=== PATIENT | female | born 1950 | race Caucasian/White ===

== ENCOUNTER → 2017-08-25 | Outpatient (CLI) | payer MEDICARE, OTHER ==
[2017-08-25 09:46] LABS: ALT 32 U/L (9-52); AST 20 U/L (14-36); Cholesterol 132 mg/dL (<200); HDL Cholesterol 31 mg/dL (40-60); LDL Cholesterol,Calculated 75 mg/dL (0-99); Triglycerides 129 mg/dL (<150)
== END | disposition home or self-care (01) ==
LOC: LABWHC1 08:33
PROVIDERS: ATTEND Family Medicine
DX: E78.00 Pure hypercholesterolemia, unspecified (principal)
CPT/HCPCS: 36415; 80061; 84450; 84460

== ENCOUNTER → 2018-04-22 | Outpatient (CLI) | payer MEDICARE ==
--- NOTE | 2018-04-23 03:54 | US ---
EXAMINATION TYPE: US pelvic complete DATE OF EXAM: 04/22/2018 COMPARISON: NONE CLINICAL HISTORY: 67-year-old female R19.09 Other intra-abdominal and pelvic swelling. TECHNIQUE: Transabdominal (TA). Date of LMP: Patient had LMP at 49 FINDINGS: EXAM MEASUREMENTS: Uterus: 8.5 x 3.6 x 4.1 cm Endometrial Stripe: 0.3 cm Right Ovary: 2.1 x 1.7 x 1.4 cm Left Ovary: 2.0 x 1.2 x 1.5 cm 1. Uterus: Anteverted wnl 2. Endometrium: wnl 3. Right Ovary: wnl 4. Left Ovary: wnl 5. Bilateral Adnexa: wnl 6. Posterior cul-de-sac: wnl IMPRESSION: No specific abnormality of the pelvis by transabdominal scanning.
== END | disposition home or self-care (01) ==
LOC: RADUSWWP 14:40
PROVIDERS: ATTEND Family Medicine
DX: R19.09 Other intra-abdominal and pelvic swelling, mass and lump (principal)
CPT/HCPCS: 76856

== ENCOUNTER → 2018-06-05 | Outpatient (CLI) | payer MEDICARE, OTHER ==
--- NOTE | 2018-06-05 14:12 | BD ---
EXAMINATION TYPE: Axial Bone Density DATE OF EXAM: 06/05/2018 COMPARISON: NONE CLINICAL HISTORY: Height: 5 FT 5 IN Weight: 160 FRAX RISK QUESTIONS: History of Fracture in Adulthood: YES Secondary Osteoporosis: RISK FA HISTORY OF: Family History of Osteoporosis: YES Postmenopausal woman: AGE 49 MEDICATIONS: Thyroid Medications: YES Which medication: UNSURE How Long: UNSURE Additional Medications: THYROIDS MEDS, DEPRESSION MEDS, H2O PILL, ACID REFLUX MEDS, Additional History: TOOK FOSAMAX AT ONE TIME HAS NOT TAKEN IN APPROX 8 YEARS EXAM MEASUREMENTS: Bone mineral densitometry was performed using the [employer] System. Bone mineral density as measured about the Lumbar spine is: ----- L1-L4(G/cm2): 0.971 T Score Values are as follows: ----- L2: -1.9 ----- L3: -1.1 ----- L4: -1.5 ----- L1-L4: -1.7 PREV NOT DONE HERE Bone mineral density about the R hip (g/cm2): 0.860 Bone mineral density about the L hip (g/cm2): 0.884 T Score values are as follows: -----R Neck: -1.3 -----L Neck: -1.1 -----R Total: -0.6 -----L Total: -0.8 PREV NOT DONE HERE IMPRESSION: Osteopenia of the lumbar spine. NOTE: T-SCORE=SD OF THE YOUNG ADULT MEAN.
== END | disposition home or self-care (01) ==
LOC: RADBDWWP 09:03
PROVIDERS: ATTEND Family Medicine
DX: M85.88 Other specified disorders of bone density and structure, other site (principal)
CPT/HCPCS: 77080

== ENCOUNTER → 2018-08-07 | Outpatient (CLI) | payer MEDICARE ==
--- NOTE | 2018-08-13 08:06 | MM ---
Reason for exam: screening (asymptomatic). Last mammogram was performed 19 years and 4 months ago. History: Patient is postmenopausal. Took hormonal contraceptives for 2 years. Physical Findings: A clinical breast exam by your physician is recommended on an annual basis and results should be correlated with mammographic findings. MG 3D Screening Mammo W/Cad Bilateral CC and MLO view(s) were taken. Prior study comparison: August 27, 2017, mammogram. November 26, 2014, mammogram. There are scattered fibroglandular densities. There is chronic nodularity in the right breast. No significant changes when compared with prior studies. ASSESSMENT: Negative, BI-RAD 1 RECOMMENDATION: Routine screening mammogram of both breasts in 1 year.
== END | disposition home or self-care (01) ==
LOC: RADMAMWWP 09:09
PROVIDERS: ATTEND Family Medicine
DX: Z12.31 Encounter for screening mammogram for malignant neoplasm of breast (principal)
CPT/HCPCS: 77063; 77067

== ENCOUNTER 2018-09-09 02:54 | Emergency (ER) | payer MEDICARE ==
--- NOTE | 2018-09-09 03:02 | ED ---
Chest Pain HPI - General Stated Complaint: Chest Pain Source: RN notes reviewed, old records reviewed - History of Present Illness Initial Comments: This is a 59-year-old female the ER for evaluation presented for evaluation of chest pain. Patient has history of high blood pressure. Patient states she does get chest pain like this occasionally, feels like it's in her throat substernal burning, she did drink some milk with some improvement prior to a rrival. No prior history of heart disease no recent surgeries travel history no sick contacts no fever cough or congestion MD Complaint: chest pain -: hour(s) Onset: during rest Pain Location: substernal, epigastric Pain Radiation: none Severity: moderate Severity scale (1-10): 4 Quality: sharp Improves With: nothing Worsens With: nothing Anginal Symptoms: nausea Treatments Prior to Arrival: none - Related Data Allergies Allergy/AdvReac Type Severity Reaction Status Date / Time bee pollen Allergy Anaphylaxis Verified 09/09/18 02:59 Review of Systems ROS Statement: Those systems with pertinent positive or pertinent negative responses have been documented in the HPI. ROS Other: All systems not noted in ROS Statement are negative. EKG Findings - EKG Comments: EKG Findings:: EKG shows sinus rhythm rate of 69, [place] 166, QRS 70, QTc 445 General Exam General appearance: alert, in no apparent distress Head exam: Present: atraumatic, normocephalic, normal inspection Eye exam: Present: normal appearance, PERRL, EOMI. Absent: scleral icterus, conjunctival injection, periorbital swelling ENT exam: Present: normal exam, mucous membranes moist Neck exam: Present: normal inspection. Absent: tenderness, meningismus, lymphadenopathy Respiratory exam: Present: normal lung sounds bilaterally. Absent: respiratory distress, wheezes, rales, rhonchi, stridor Cardiovascular Exam: Present: regular rate, normal rhythm, normal heart sounds. Absent: systolic murmur, diastolic murmur, rubs, gallop, clicks GI/Abdominal exam: Present: soft, normal bowel sounds. Absent: distended, tenderness, guarding, rebound, rigid Extremities exam: Present: normal inspection, full ROM, normal capillary refill. Absent: tenderness, pedal edema, joint swelling, calf tenderness Back exam: Present: normal inspection Neurological exam: Present: alert, oriented X3, CN II-XII intact Psychiatric exam: Present: normal affect, normal mood Skin exam: Present: warm, dry, intact, normal color. Absent: rash Course Vital Signs 09/09/18 09/09/18 09/09/18 02:59 03:30 04:00 Temperature 97.7 F 98.1 F Pulse Rate 76 63 64 Respiratory 19 22 18 Rate Blood Pressure 162/98 163/93 163/92 O2 Sat by Pulse 97 99 98 Oximetry Chest Pain MDM - MDM 67 female to the ED c/o cp, feels just like her reflux and does not want admission for further cardiac evaluation, patient does feel better after Zofran and GI cocktail, chest pain is resolved and nausea no active shortness of breath. Patient will be discharged Disposition Clinical Impression: Chest pain, Atypical chest pain Disposition: HOME SELF-CARE Instructions (If sedation given, give patient instructions): Gastroesophageal Reflux Disease (ED) Is patient prescribed a controlled substance at d/c from ED?: No Referrals: None,Stated [Primary Care Provider] - 1-2 days
[2018-09-09 03:31] LABS: Basophils # (A) 0.1 k/uL (0-0.2); Basophils % (A) 1 %; Eosinophils # (A) 0.3 k/uL (0-0.7); Eosinophils % (A) 3 %; HCT 43.7 % (34.0-46.0); HGB 13.9 gm/dL (11.4-16.0); Lymphocytes # (A) 2.8 k/uL (1.0-4.8); Lymphocytes % (A) 29 %; MCH 27.6 pg (25.0-35.0); MCHC 31.8 g/dL (31.0-37.0); MCV 86.8 fL (80.0-100.0); Monocytes # (A) 0.5 k/uL (0-1.0); Monocytes % (A) 5 %; Neutrophils # (A) 5.8 k/uL (1.3-7.7); Neutrophils % (A) 61 %; Platelet Count 208 k/uL (150-450); RBC 5.04 m/uL (3.80-5.40); RDW 13.3 % (11.5-15.5); WBC 9.5 k/uL (3.8-10.6)
[2018-09-09 03:40] LABS: ALT 19 U/L (9-52); AST 17 U/L (14-36); African American GFR (CKD) >90 (>60 ml/min/1.73 sqM); Alkaline Phosphatase 75 U/L (38-126); Anion Gap 10 mmol/L; Blood Urea Nitrogen 14 mg/dL (7-17); Calcium 9.3 mg/dL (8.4-10.2); Carbon Dioxide 27 mmol/L (22-30); Chloride 103 mmol/L (98-107); Creatine Kinase 44 U/L (30-135); Glucose 176 mg/dL (74-99); Magnesium 2.2 mg/dL (1.6-2.3); Sodium 140 mmol/L (137-145); Total Bilirubin 0.3 mg/dL (0.2-1.3); Total Protein 6.4 g/dL (6.3-8.2)
--- NOTE | 2018-09-09 03:41 | XR ---
EXAM: XR Chest, 2 Views CLINICAL HISTORY: ITS.REASON XR Reason: Chest Pain TECHNIQUE: Frontal and lateral views of the chest. COMPARISON: No relevant prior studies available. FINDINGS: Lungs: Prominent perihilar/infrahilar opacities, possible atelectasis or developing infiltrate. Pleural space: No significant pleural effusion or pneumothorax. Heart: Unremarkable. Mediastinum: Mildly prominent mediastinal silhouette, may be related to tortuous/ectatic aorta or other etiology. Bones/joints: No acute fracture. Upper abdomen: Air-fluid level in the stomach. IMPRESSION: Prominent perihilar/infrahilar opacities, possible atelectasis or developing infiltrate.
[2018-09-09 03:55] LABS: D-Dimer 0.44 mg/L FEU (<0.60); INR 0.9 (<1.2); Partial Thromboplastin Time 23.6 sec (22.0-30.0); Prothrombin Time 9.4 sec (9.0-12.0)
[2018-09-09] MEDS ORDERED: MAG HYDROX/AL HYDROX/SIMETH 30 ML, HYOSCYAMINE ELIXIR 10 ML, CIMETIDINE HCL 300 MG, LID... PO STA ×4 (04:11)
[2018-09-09] MEDS ORDERED: PANTOPRAZOLE 40 MG/10 ML VIAL IVP STA (04:11)
[2018-09-09] MEDS ORDERED: ONDANSETRON 4 MG/2 ML VIAL IVP STA (04:11)
[2018-09-09 04:28] VITALS: BP 163/92; PULSE 64; RESP 18; TEMP 98.1
--- NOTE | 2018-09-11 02:32 | CDI ---
Documentation Clarification OP Dear Vinh AIKEN, DO Please provide clinical impression & disposition. Thank you, Shayy Jackson Atm Servicer If you have any questions, please contact Warehouse Examiner at [phone] [facility]
== END 2018-09-09 04:42 | disposition home or self-care (01) ==
LOC: EC 02:54
DX: R07.89 Other chest pain (principal); R11.0 Nausea; Z91.048 Other nonmedicinal substance allergy status
CPT/HCPCS: 36415; 93005; 85379; 83880; 80053; 82550; 83690; 83735; 84484; 85025; 85610; 85730; 71046; 99285; 96374; 96375; J2405; C9113

== ENCOUNTER → 2018-09-17 | Outpatient (CLI) | payer MEDICARE ==
--- NOTE | 2018-09-17 12:03 | XR ---
EXAMINATION TYPE: XR chest 2V DATE OF EXAM: 09/17/2018 COMPARISON: 09/09/2018 HISTORY: Increasing and persistent cough. Shortness of breath. TECHNIQUE: Frontal and lateral views of the chest are obtained. FINDINGS: Minimal bibasilar subsegmental dependent atelectasis. Cardiomediastinal silhouette is with in normal limits. No pulmonary vascular congestion. No pleural effusion or pneumothorax. Generalized osseous demineralization is seen. Minimal degenerative changes of the spine. IMPRESSION: Bibasilar subsegmental dependent atelectasis. No new focal consolidation.
== END | disposition home or self-care (01) ==
LOC: RADXRYALE 10:18
PROVIDERS: ATTEND Physician Assistant Medical
DX: J98.11 Atelectasis (principal)
CPT/HCPCS: 71046

== ENCOUNTER → 2019-07-10 | Outpatient (CLI) | payer MEDICARE ==
--- NOTE | 2019-07-10 09:50 | US ---
EXAMINATION TYPE: US duplex aorta DATE OF EXAM: 07/10/2019 COMPARISON: NONE CLINICAL HISTORY: Z136 Screening for cardiovascular disorders. No HTN, no hx TIA, high cholesterol EXAM MEASUREMENTS: Abdominal Aorta: Proximal: 1.9 x 1.8 cm Mid: 1.6 x 1.8 cm Distal: 1.2 x 1.4 cm Bifurcation: Right- 1.1 x 0.8 cm Left- 1.0 x 0.9 cm No AAA visualized IMPRESSION: No sonographic evidence of abdominal aortic aneurysm in the visualized portion of the abd ominal aorta.
== END | disposition home or self-care (01) ==
LOC: RADUSWWP 08:59
PROVIDERS: ATTEND Family Medicine
DX: Z13.6 Encounter for screening for cardiovascular disorders (principal)
CPT/HCPCS: 93979

== ENCOUNTER 2019-07-21 09:12 | Day surgery (SDC) | payer MEDICARE ==
[2019-07-17 11:15] VITALS: BMI 29.2
[~2019-07-21 09:12] MED LIST: LACTATED RINGERS 1,000 ML IV SCH; LIDOCAINE 1% (10MG/ML) FOR IV START INTRADERMA PRN
[2019-07-21 09:43] VITALS: RESP 16; TEMP 97.7
[2019-07-21] MEDS ORDERED: PROPOFOL 10 MG/ML 20 ML VIAL IV ONE (09:51)
--- NOTE | 2019-07-21 10:07 | P.PCN ---
Date of Procedure: 07/21/19 Description of Procedure: BRIEF HISTORY: Patient is a 68-year-old female with a history of GERD presenting for outpatient EGD. Reports symptoms of heartburn and reflux currently on omeprazole therapy. PROCEDURE PERFORMED: Esophagogastroduodenoscopy with biopsy. PREOPERATIVE DIAGNOSIS: GERD. ESTIMATED BLOOD LOSS: Minimal. IV sedation per anesthesia. PROCEDURE: After informed consent was obtained, the patient was brought into the endoscopy unit. IV sedation was administered by Anesthesia under continuous monitoring. Initially the Olympus GIF-190 video endoscope was inserted into the mouth. Esophagus intubated without any difficulty. It was gradually advanced into the stomach and duodenum and carefully examined. The bulb and the second part of the duodenum appeared normal, with biopsies taken. The scope at this time was withdrawn to the stomach, adequately insufflated with air, and upon careful examination, mucosa of the antrum, body, cardia and the fundus appeared normal, except for scattered erythema and superficial erosions predominantly in the antrum and also in the body with biopsies of the antrum and body. The scope was then withdrawn into the esophagus. The GE junction was located at 39 cm from the incisors, with biopsies taken. The esophagus appeared normal. There were no erosions or ulcerations seen and the patient tolerated the procedure well. IMPRESSION: 1. Moderate gastritis, antrum and body biopsies. 2. Biopsies of the GE junction and duodenum. RECOMMENDATIONS: The findings of this examination were discussed with the patient and her family. Continue omeprazole therapy. Await pathology from biopsies. Would recommend avoiding NSAID use, with the patient currently taking Excedrin.
[2019-07-21 10:26] VITALS: BP 136/82; PULSE 59
== END 2019-07-21 10:39 | disposition home or self-care (01) ==
LOC: ORWHC2ENDO 09:12
PROVIDERS: ATTEND Internal Medicine
DX: K21.0 Gastro-esophageal reflux disease with esophagitis (principal); K29.50 Unspecified chronic gastritis without bleeding; K25.9 Gastric ulcer, unspecified as acute or chronic, without hemorrhage or perforation; I10 Essential (primary) hypertension; E78.5 Hyperlipidemia, unspecified; E07.9 Disorder of thyroid, unspecified; R51 Headache; Z87.891 Personal history of nicotine dependence; Z91.030 Bee allergy status; Z91.09 Other allergy status, other than to drugs and biological substances; Z79.890 Hormone replacement therapy; Z79.899 Other long term (current) drug therapy; Z79.1 Long term (current) use of non-steroidal anti-inflammatories (NSAID); Z98.890 Other specified postprocedural states; Z90.89 Acquired absence of other organs; Z86.73 Personal history of transient ischemic attack (TIA), and cerebral infarction without residual deficits; Z87.898 Personal history of other specified conditions
CPT/HCPCS: 88305; 43239; J2704

== ENCOUNTER → 2019-12-01 | Outpatient (CLI) | payer MEDICARE ==
--- NOTE | 2019-12-01 13:13 | XR ---
EXAMINATION TYPE: XR lumbosacral spine min 4V DATE OF EXAM: 12/01/2019 Comparison: None Clinical History: 69-year-old female M545 LBP Findings: Hypertrophic facet arthropathy mid to lower lumbar spine. Trace grade 1 anterolisthesis L4-L5. Verteb ral body heights are preserved and disc interspaces are relatively maintained. No pars interarticular is defect seen. 5 lumbar type vertebral bodies. Impression: Hypertrophic facet arthropathy mid to lower lumbar spine with trace grade 1 anterolisthesis at L4-L5. No vertebral compression collapse.
== END | disposition home or self-care (01) ==
LOC: RADXRYALE 10:43
PROVIDERS: ATTEND Physician Assistant Medical
DX: M47.816 Spondylosis without myelopathy or radiculopathy, lumbar region (principal)
CPT/HCPCS: 72110

== ENCOUNTER → 2020-03-11 | Outpatient (CLI) | payer MEDICARE ==
--- NOTE | 2020-03-11 09:46 | XR ---
EXAMINATION TYPE: XR chest 2V DATE OF EXAM: 03/11/2020 COMPARISON: 09/17/2018 INDICATION: Chest pain, cough TECHNIQUE: Frontal and lateral views of the chest are obtained. FINDINGS: The heart size is normal. The pulmonary vasculature is normal. The lungs are clear. IMPRESSION: 1. No acute pulmonary process.
== END | disposition home or self-care (01) ==
LOC: RADXRYALE 09:07
PROVIDERS: ATTEND Physician Assistant
DX: R05 Cough (principal); R07.9 Chest pain, unspecified
CPT/HCPCS: 71046

== ENCOUNTER → 2020-12-21 | Outpatient (CLI) | payer MEDICARE ==
--- NOTE | 2020-12-21 12:16 | BD ---
EXAMINATION TYPE: Axial Bone Density DATE OF EXAM: 12/21/2020 COMPARISON: Prior DEXA bone scan June 05, 2018 CLINICAL HISTORY: Postmenopausal female Height: 5 FT 5 IN Weight: 163 FRAX RISK QUESTIONS: Alcohol (3 or more units per day): NO Family History (Parent hip fracture): NO Glucocorticoids (More than 3mos): NO (Ex: prednisone, prednisolone, methylprednisolone, dexamethasone, and hydrocortisone). History of Fracture in Adulthood: YES Secondary Osteoporosis: 1. Type 1 Diabetes: NO 2. Hyperthyroidism: NO 3. Menopause before 45: NO 4. Malnutrition: NO 5. Chronic liver disease: NO Rheumatoid Arthritis: NO Current Tobacco Use: FORMER RISK FACTORS HISTORY OF: Surgery to Spine/Hip(right/left)/Wrist (right/left): NO Family History of Osteoporosis: YES Active: YES Diet low in dairy products/other sources of calcium: NO Postmenopausal woman: YES Take estrogen and/or progesterone medications: NO Lost more than 2 inches in height since high school: YES Poor Health: GOOD Hyperparathyroidism: NO Adrenal Insufficiency: NO MEDICATIONS: Thyroid Medications: YES Which medication: LEVOTHYROXINE How Long: APPROX 15 YEARS Additional Medications: LEVOTHYROXINE, CHOLESTEROL MEDS, H2O PILL, DEPRESSION MEDS, REFLUX MEDS Additional History: EXAM MEASUREMENTS: Bone mineral densitometry was performed using the [employer] System. Bone mineral density as measured about the Lumbar spine is: ----- L1-L4(G/cm2): 0.950 T Score Values are as follows: ----- L2: -2.7 ----- L3: -1.9 ----- L4 -1.2: ----- L1-L4: -1.9 Bone mineral density has: DECREASED -4.5 % since study of: 2018 Bone mineral density about the R hip (g/cm2): 0.848 Bone mineral density about the L hip (g/cm2): 0.865 T Score values are as follows: -----R Neck: -1.4 -----L Neck: -1.2 -----R Total: -0.6 -----L Total: -0.6 Bone mineral density has: INCREASED 0.9 % since study of: 2018 IMPRESSION: Osteopenia (T Score between -2.5 and -1) remains present. There remains slightly increased risk of fracture and the patient may be considered for treatment. Re-Screen 2-5 years. NOTE: T-SCORE=SD OF THE YOUNG ADULT MEAN.
--- NOTE | 2020-12-22 11:11 | MM ---
Reason for exam: screening (asymptomatic). Last mammogram was performed 2 years and 4 months ago. History: Patient is postmenopausal. Took hormonal contraceptives for 2 years. Physical Findings: A clinical breast exam by your physician is recommended on an annual basis and results should be correlated with mammographic findings. MG 3D Screening Mammo W/Cad Bilateral CC and MLO view(s) were taken. Prior study comparison: August 07, 2018, bilateral MG 3d screening mammo w/cad. August 27, 2017, mammogram. There are scattered fibroglandular densities. There are benign appearing round calcifications bilaterally. There is chronic nodularity in the left breast. There is no discrete abnormality. ASSESSMENT: Benign, BI-RAD 2 RECOMMENDATION: Routine screening mammogram of both breasts in 1 year.
== END | disposition home or self-care (01) ==
LOC: RADMAMWWP 09:23
PROVIDERS: ATTEND Family Medicine
DX: Z12.31 Encounter for screening mammogram for malignant neoplasm of breast (principal); M81.0 Age-related osteoporosis without current pathological fracture; M85.89 Other specified disorders of bone density and structure, multiple sites; Z78.0 Asymptomatic menopausal state
CPT/HCPCS: 77063; 77067; 77080

== ENCOUNTER 2021-02-02 19:12 | Emergency (ER) | payer MEDICARE ==
[2021-02-02] MEDS ORDERED: HYDROmorphone 1 MG/ML 1 ML SYRINGE IVP STA (19:17)
[2021-02-02 19:23] VITALS: TEMP 97.6
--- NOTE | 2021-02-02 19:35 | ED ---
Fall HPI - General Stated Complaint: Fall Time Seen by Provider: 02/02/21 19:16 Source: patient, EMS Mode of arrival: EMS - History of Present Illness Initial Comments: Cherry is a 70yo F brought to the ER via private vehicle for evaluation of left arm injury. Patient fell head first into her bathtub, her arm bent in an awkward position an she is unable to move it due to pain. Denies other injuries. Not on antiplatelet or anticoagulation medications. - Related Data Home Medications Medication Instructions Recorded Confirmed Atorvastatin [Lipitor] 20 mg PO HS 07/17/19 02/02/21 Levothyroxine Sodium [Synthroid] 75 mcg PO DAILY 07/17/19 02/02/21 RX: Omeprazole 20 mg PO DAILY 07/17/19 02/02/21 hydroCHLOROthiazide [Hydrodiuril] 12.5 mg PO DAILY 07/17/19 02/02/21 Allergies Allergy/AdvReac Type Severity Reaction Status Date / Time bee pollen Allergy Anaphylaxis Verified 02/02/21 22:35 IVORY SOAP Allergy Unknown Rash/Hives Uncoded 07/17/19 11:02 Review of Systems ROS Statement: Those systems with pertinent positive or pertinent negative responses have been documented in the HPI. ROS Other: All systems not noted in ROS Statement are negative. Past Medical History Past Medical History: GERD/Reflux, Hyperlipidemia, Thyroid Disorder History of Any Multi-Drug Resistant Organisms: None Reported Past Surgical History: Section Past Psychological History: Depression Smoking Status: Never smoker Past Alcohol Use History: Occasional Past Drug Use History: None Reported General Exam - General Exam Comments Initial Comments: Physical Exam GENERAL: Acute distress secondary to pain HENT: Normocephalic, Atraumatic. EYES: PERRL, EOMI PULMONARY: Tachypnic, crying CARDIOVASCULAR: There is a regular rate and rhythm without any murmurs gallops or rubs. ABDOMEN: Soft and nontender with normal bowel sounds. SKIN: Skin is clear with no lesions or rashes and otherwise unremarkable. : Deferred NEUROLOGIC: Patient is alert and oriented x3. Moving all extremities spontaneously MUSCULOSKELETAL: Decreased ROM left arm due to pain PSYCHIATRIC: Normal psychiatric evaluation. Limitations: no limitations Course Vital Signs 02/02/21 02/02/21 02/02/21 19:15 20:52 21:21 Temperature 97.6 F Pulse Rate 69 71 65 Respiratory 18 18 18 Rate Blood Pressure 187/97 186/101 154/85 O2 Sat by Pulse 94 L Oximetry 02/02/21 02/02/21 02/02/21 21:31 21:35 21:40 Temperature Pulse Rate 61 61 58 L Respiratory 18 18 18 Rate Blood Pressure 141/78 132/76 144/80 O2 Sat by Pulse 93 L 95 100 Oximetry 02/02/21 02/02/21 02/02/21 21:45 21:50 21:55 Temperature Pulse Rate 58 L 55 L 55 L Respiratory 18 18 14 Rate Blood Pressure 162/91 144/113 153/80 O2 Sat by Pulse 100 95 100 Oximetry 02/02/21 02/02/21 02/02/21 22:00 22:06 22:10 Temperature Pulse Rate 53 L 54 L 68 Respiratory 18 18 18 Rate Blood Pressure 156/105 149/82 148/91 O2 Sat by Pulse 95 100 100 Oximetry 02/02/21 02/02/21 02/02/21 22:15 22:30 22:45 Temperature Pulse Rate 63 60 59 L Respiratory 18 18 18 Rate Blood Pressure 159/92 164/80 161/84 O2 Sat by Pulse 100 100 100 Oximetry 02/02/21 23:00 Temperature Pulse Rate 77 Respiratory 18 Rate Blood Pressure 167/84 O2 Sat by Pulse 99 Oximetry Procedures - Murray Protocol (Time Out) Performing Provider: Elsa Gannon Nurse: Sofia Christopher Timeout Date: 02/02/21 Timeout Time: 21:30 Patient Identification (2 identifiers required): Verbal Patient/Legal Distribution Engineer has Confirmed: Identity, Site, Procedure, Consent Site: left shoulder Site Marked: No Site Verified With Patient/Guardian: Yes Final Confirmation: Procedure, Site, Laterality, Patient Position, Radiographs, Confirmed w/Provider - Orthopedic Joint Reduction Joint #1 Consent Obtained: verbal consent, written consent Side: left Joint Reduction Location: shoulder Analgesia: procedural sedation Shoulder Technique Used (if applicable): traction/counter-traction Post-Reduction Neuro Exam: intact Post-Reduction Vascular Exam: intact Post Reduction X-Ray Obtained: Yes Post Reduction X-Ray Results: reduced Splint Applied: Yes Patient Tolerated Procedure: well (2 attempts) - Procedural Sedation Procedural Sedation Start Time: 21:32 Procedural Sedation Stop Time: 22:30 Indications: fracture/dislocation reduction ASA Class: II Mallampati Airway Score: 2 Preparation: refractory specialist applied, pulse oximeter, capnometry used, supplemental O2 applied, reversal agents at bedside, suction/airway equipment at bedside, IV secured IV Propofol Dose (mgs): 150 Complications: none Interventions: oxygen applied Patient Tolerated Procedure: well Medical Decision Making - Medical Decision Making She was seen and evaluated, history is obtained from the patient, patient received medications prior to arrival however she is in significant pain, she received Dilaudid however given that she had a headfirst mechanism is complaining of head and neck pain head CT was obtained as well as x-ray of the shoulder, there is an inferior dislocation of the shoulder, reduction was pending computed tomography scan of the cervical spine patient refused a c- collar per EMS Developed some nausea and vomiting after IV Dilaudid she was treated with Zofran Head CT is unremarkable cervical spine CT reveals some rotation of C1-C2, these results were discussed with vital surgeon who recommends cervical spine immobilization with a cervical collar and likely admission with a MRI for tomorrow however he is out of town and would like Dr. Trujillo sent to cover ortho spine She care was discussed with or the on-call Dr Bradley Who will accept the patient is a trauma admission due to orthopedic injuries with spine surgery on consult Patient was placed in a cervical collar, timeout was done, procedural sedation was performed reduction was attempted was initially unsuccessful but was reattempted and was successful the second time. X-rays confirm successful reduction. Further x-rays revealed no additional injury to the left arm Patient care was discussed with spine surgeon who agrees to be on consult Admission orders were placed, MRI order for tomorrow placed - Lab Data Result diagrams: 02/02/21 21:41 02/02/21 21:41 Lab Results 02/02/21 02/02/21 02/02/21 Range/Units 21:41 21:41 21:41 WBC 8.6 (3.8-10.6) k/uL RBC 3.73 L (3.80-5.40) m/uL Hgb 10.7 L (11.4-16.0) gm/dL Hct 32.8 L (34.0-46.0) % MCV 88.1 (80.0-100.0) fL MCH 28.7 (25.0-35.0) pg MCHC 32.5 (31.0-37.0) g/dL RDW 13.9 (11.5-15.5) % Plt Count 97 L (150-450) k/uL MPV 9.7 Neutrophils % 49 % Lymphocytes % 44 % Monocytes % 4 % Eosinophils % 2 % Basophils % 1 % Neutrophils # 4.2 (1.3-7.7) k/uL Lymphocytes # 3.8 (1.0-4.8) k/uL Monocytes # 0.3 (0-1.0) k/uL Eosinophils # 0.2 (0-0.7) k/uL Basophils # 0.1 (0-0.2) k/uL PT 9.8 (9.0-12.0) sec INR 0.9 (<1.2) APTT 17.9 L (22.0-30.0) sec Sodium 138 (137-145) mmol/L Potassium 3.4 L (3.5-5.1) mmol/L Chloride 105 (98-107) mmol/L Carbon Dioxide 21 L (22-30) mmol/L Anion Gap 12 mmol/L BUN 13 (7-17) mg/dL Creatinine 0.60 (0.52-1.04) mg/dL Est GFR (CKD-EPI)AfAm >90 (>60 ml/min/1.73 sqM) Est GFR (CKD-EPI)NonAf >90 (>60 ml/min/1.73 sqM) Glucose 120 H (74-99) mg/dL Calcium 8.9 (8.4-10.2) mg/dL Total Bilirubin 0.4 (0.2-1.3) mg/dL AST 31 (14-36) U/L ALT 24 (4-34) U/L Alkaline Phosphatase 91 (38-126) U/L Total Protein 6.5 (6.3-8.2) g/dL Albumin 4.0 (3.5-5.0) g/dL Disposition Clinical Impression: Dislocation of left shoulder joint, Fall, Concussion, Abnormal CT scan, cervical spine Disposition: ADMITTED IP TO THIS [facility] Condition: Stable Is patient prescribed a controlled substance at d/c from ED?: No Referrals: Rigo Santillan DO [Primary Care Provider] - 1-2 days
[2021-02-02] MEDS ORDERED: PROPOFOL 10 MG/ML 20 ML VIAL IV STA (20:31)
[2021-02-02] MEDS ORDERED: ONDANSETRON 4 MG/2 ML VIAL IVP STA (20:31)
--- NOTE | 2021-02-02 20:39 | CT ---
EXAMINATION TYPE: CT brain latha campbell con DATE OF EXAM: 02/02/2021 COMPARISON: None HISTORY: Pt fall TECHNIQUE: CT scan of the head and cervical spine without contrast CT DLP: 1503.6 mGycm Automated exposure control for dose reduction was used. FINDINGS: There is encephalomalacia in the left parietal lobe. There is associated exvacuodilatation of the pos terior horn of the left lateral ventricle. Prominence of the CSF spaces and ventricular system in keeping with brain volume loss. No acute intracranial hemorrhage, midline shift or mass effect. The mireles-white matter differentiation is preserved other than described above. No acute orbital, osseous or soft tissue abnormalities seen. No air-fluid levels are seen in the paranasal sinuses or mastoid air cells. Mild degenerative changes in the bilateral temporomandibular joints are noted. No acute fracture or dislocation seen in the cervical spine. There is slight rotation at C1-2. Atlantooccipital joint is maintained. Moderate severe degenerative changes are seen in the cervical and thoracic spine. Airways are patent. The upper lungs are without any masses. Limited bilateral cervical lymph nodes no tiffany. IMPRESSION: 1 NO EVIDENCE FOR ACUTE INTRACRANIAL HEMORRHAGE MIDLINE SHIFT OR MASS EFFECT. 2. MILD ROTATION AT C1-2. CLINICAL CORRELATION FOR LIGAMENTOUS INJURY RECOMMENDED. 3. NO ACUTE FRACTURE OR DISLOCATION SEEN IN THE CERVICAL SPINE. 4. ENCEPHALOMALACIA LEFT PARIETAL LOBE AND MILD BRAIN VOLUME LOSS.
--- NOTE | 2021-02-02 20:41 | XR ---
EXAMINATION TYPE: XR shoulder complete LT DATE OF EXAM: 02/02/2021 COMPARISON: NONE HISTORY: 70 years Female. STUDY INDICATION GIVEN: injury . TECHNIQUE: AP and Y view radiographs of the left shoulder IMPRESSION: Inferior shoulder dislocation. Fracture deformity of the superior lateral humeral head. No definite osseous Bankart seen. Generalized osteopenia and mild AC joint osteoarthrosis. Overlying soft tissue swelling noted.
[2021-02-02] MEDS ORDERED: PROPOFOL 10 MG/ML 20 ML VIAL IV ONE (21:44)
[2021-02-02 21:48] LABS: Basophils # (A) 0.1 k/uL (0-0.2); Basophils % (A) 1 %; Eosinophils # (A) 0.2 k/uL (0-0.7); Eosinophils % (A) 2 %; HCT 32.8 % (34.0-46.0); HGB 10.7 gm/dL (11.4-16.0); Lymphocytes # (A) 3.8 k/uL (1.0-4.8); Lymphocytes % (A) 44 %; MCH 28.7 pg (25.0-35.0); MCHC 32.5 g/dL (31.0-37.0); MCV 88.1 fL (80.0-100.0); Mean Platelet Volume 9.7; Monocytes # (A) 0.3 k/uL (0-1.0); Monocytes % (A) 4 %; Neutrophils # (A) 4.2 k/uL (1.3-7.7); Neutrophils % (A) 49 %; Platelet Count 97 k/uL (150-450); RBC 3.73 m/uL (3.80-5.40); RDW 13.9 % (11.5-15.5); WBC 8.6 k/uL (3.8-10.6)
[2021-02-02 21:57] LABS: ALT 24 U/L (4-34); AST 31 U/L (14-36); African American GFR (CKD) >90 (>60 ml/min/1.73 sqM); Alkaline Phosphatase 91 U/L (38-126); Anion Gap 12 mmol/L; Blood Urea Nitrogen 13 mg/dL (7-17); Calcium 8.9 mg/dL (8.4-10.2); Carbon Dioxide 21 mmol/L (22-30); Chloride 105 mmol/L (98-107); Glucose 120 mg/dL (74-99); Non-African American GFR(CKD) >90 (>60 ml/min/1.73 sqM); Potassium 3.4 mmol/L (3.5-5.1); Sodium 138 mmol/L (137-145); Total Bilirubin 0.4 mg/dL (0.2-1.3); Total Protein 6.5 g/dL (6.3-8.2)
--- NOTE | 2021-02-02 22:01 | XR ---
EXAMINATION TYPE: XR shoulder limited LT DATE OF EXAM: 02/02/2021 CLINICAL HISTORY: pain COMPARISON: NONE TECHNIQUE: Single view of the left shoulder are obtained. FINDINGS: Limited single view demonstrates anterior shoulder dislocation. No displaced fracture seen with certainty. AC joint is intact. IMPRESSION: 1. Anterior shoulder dislocation
[2021-02-02 22:14] LABS: INR 0.9 (<1.2); Prothrombin Time 9.8 sec (9.0-12.0)
[2021-02-02 22:31] LABS: Partial Thromboplastin Time 17.9 sec (22.0-30.0)
--- NOTE | 2021-02-02 22:34 | XR ---
EXAMINATION TYPE: XR forearm LT DATE OF EXAM: 02/02/2021 COMPARISON: NONE HISTORY: Pain TECHNIQUE: 2 views FINDINGS: Radius and ulna appear intact. ACL fracture. Elbow joint appears anatomic. IMPRESSION: Negative left forearm exam. No fracture seen.
--- NOTE | 2021-02-02 22:36 | XR ---
EXAMINATION TYPE: XR cervical spine limited DATE OF EXAM: 02/02/2021 COMPARISON: NONE HISTORY: Pain TECHNIQUE: 3 views FINDINGS: Cervical spine significantly obscured by the shoulders and size of the patient. The cervica l vertebra appear to have fairly normal alignment. Posterior elements are intact. Atlantoaxial facet joint not well seen. There are no cervical ribs. IMPRESSION: No fractures seen.
--- NOTE | 2021-02-02 22:37 | XR ---
EXAMINATION TYPE: XR humerus LT DATE OF EXAM: 02/02/2021 COMPARISON: Today HISTORY: Pain. Postreduction.. TECHNIQUE: Single view FINDINGS: There is anatomic position of the glenohumeral joint. I see no fracture line. IMPRESSION: Anatomic reduction of the shoulder joint. No fracture seen.
[2021-02-02] MEDS ORDERED: NALOXONE 0.4 MG/ML 1 ML VIAL IV PRN (22:38)
[2021-02-02] MEDS ORDERED: MORPHINE SULFATE 4 MG/ML SYRINGE IVP PRN (23:24)
[2021-02-02] MEDS ORDERED: ONDANSETRON 4 MG/2 ML VIAL IVP PRN (23:24)
[2021-02-02] MEDS ORDERED: diphenhydrAMINE 50 MG/ML 1 ML VIAL IVP PRN (23:25)
[2021-02-03] MEDS: METOCLOPRAMIDE 5 MG/ML 2 ML VIAL IVP SCH ×3 (01:38→13:57)
--- NOTE | 2021-02-03 06:34 | ED ---
Medical Decision Making - Lab Data Result diagrams: 02/02/21 21:41 02/02/21 21:41 <Mare Wang - Last Filed: 02/03/21 22:33> - Lab Data Result diagrams: 02/02/21 21:41 02/02/21 21:41 <Vinh Montgomery - Last Filed: 02/04/21 03:04> - Medical Decision Making I spoke with Dr. Tucker in regards to the patient's cervical spine MRI which demonstrates no cervical spine injury. He reports that it as it is an orthopedic injury that it should go to the original orthopedic group on consult if it does not involve the spine. I then called and spoke with [facility] from [facility]. She does speak with Dr. Bradley who is still refusing to take the admission as he is concerned that the patient hit her head. She must speak with Dr. Rockwell as she is the new orthopod on consult. Dr. Rockwell does agree to admit the patient. Admission orders are placed. Orthopedic PA does present to the emergency department and orders repeat x-rays. X-ray does demonstrate AC arthopathy. No dislocation. They feel the patient is stable for discharge as no immediate intervention is planned. This is discussed with the patient and she is eager for discharge. Patient will be discharged home and follow up in orthopedic clinic next week. (Mare Wang) 70 female who came to the emergency room today for a fall yesterday with possible cervical spine injury, patient will keep consultation by orthopedics for shoulder dislocation as well as possible ligament this cervical spine injury and pending MRI today. In the meantime patient will be kept in the emergency department for evaluation as we currently do not have physician to accept patient as inpatient admission (Vinh Montgomery) - Lab Data Lab Results 02/02/21 02/02/21 02/02/21 Range/Units 21:41 21:41 21:41 WBC 8.6 (3.8-10.6) k/uL RBC 3.73 L (3.80-5.40) m/uL Hgb 10.7 L (11.4-16.0) gm/dL Hct 32.8 L (34.0-46.0) % MCV 88.1 (80.0-100.0) fL MCH 28.7 (25.0-35.0) pg MCHC 32.5 (31.0-37.0) g/dL RDW 13.9 (11.5-15.5) % Plt Count 97 L (150-450) k/uL MPV 9.7 Neutrophils % 49 % Lymphocytes % 44 % Monocytes % 4 % Eosinophils % 2 % Basophils % 1 % Neutrophils # 4.2 (1.3-7.7) k/uL Lymphocytes # 3.8 (1.0-4.8) k/uL Monocytes # 0.3 (0-1.0) k/uL Eosinophils # 0.2 (0-0.7) k/uL Basophils # 0.1 (0-0.2) k/uL PT 9.8 (9.0-12.0) sec INR 0.9 (<1.2) APTT 17.9 L (22.0-30.0) sec Sodium 138 (137-145) mmol/L Potassium 3.4 L (3.5-5.1) mmol/L Chloride 105 (98-107) mmol/L Carbon Dioxide 21 L (22-30) mmol/L Anion Gap 12 mmol/L BUN 13 (7-17) mg/dL Creatinine 0.60 (0.52-1.04) mg/dL Est GFR (CKD-EPI)AfAm >90 (>60 ml/min/1.73 sqM) Est GFR (CKD-EPI)NonAf >90 (>60 ml/min/1.73 sqM) Glucose 120 H (74-99) mg/dL Calcium 8.9 (8.4-10.2) mg/dL Total Bilirubin 0.4 (0.2-1.3) mg/dL AST 31 (14-36) U/L ALT 24 (4-34) U/L Alkaline Phosphatase 91 (38-126) U/L Total Protein 6.5 (6.3-8.2) g/dL Albumin 4.0 (3.5-5.0) g/dL Coronavirus (PCR) (Not Detectd) 02/02/21 Range/Units 23:11 WBC (3.8-10.6) k/uL RBC (3.80-5.40) m/uL Hgb (11.4-16.0) gm/dL Hct (34.0-46.0) % MCV (80.0-100.0) fL MCH (25.0-35.0) pg MCHC (31.0-37.0) g/dL RDW (11.5-15.5) % Plt Count (150-450) k/uL MPV Neutrophils % % Lymphocytes % % Monocytes % % Eosinophils % % Basophils % % Neutrophils # (1.3-7.7) k/uL Lymphocytes # (1.0-4.8) k/uL Monocytes # (0-1.0) k/uL Eosinophils # (0-0.7) k/uL Basophils # (0-0.2) k/uL PT (9.0-12.0) sec INR (<1.2) APTT (22.0-30.0) sec Sodium (137-145) mmol/L Potassium (3.5-5.1) mmol/L Chloride (98-107) mmol/L Carbon Dioxide (22-30) mmol/L Anion Gap mmol/L BUN (7-17) mg/dL Creatinine (0.52-1.04) mg/dL Est GFR (CKD-EPI)AfAm (>60 ml/min/1.73 sqM) Est GFR (CKD-EPI)NonAf (>60 ml/min/1.73 sqM) Glucose (74-99) mg/dL Calcium (8.4-10.2) mg/dL Total Bilirubin (0.2-1.3) mg/dL AST (14-36) U/L ALT (4-34) U/L Alkaline Phosphatase (38-126) U/L Total Protein (6.3-8.2) g/dL Albumin (3.5-5.0) g/dL Coronavirus (PCR) Not Detected (Not Detectd) Disposition Is patient prescribed a controlled substance at d/c from ED?: No Time of Disposition: 15:44 <Mare Wang - Last Filed: 02/03/21 22:33> <Vihn Montgomery - Last Filed: 02/04/21 03:04> Clinical Impression: Dislocation of left shoulder joint, Fall, Concussion, Abnormal CT scan, cervical spine Disposition: HOME SELF-CARE Condition: Stable Procedures - [place] Protocol (Time Out) Procedure Performed:: closed reduction of left shoulder Performing Provider: Elsa Gannon Nurse: Sofia Christopher Patient Identification (2 identifiers required): Verbal Patient/Legal Card Game Operator has Confirmed: Identity, Site, Procedure, Consent Site: left shoulder Site Marked: No Site Verified With Patient/Guardian: Yes Final Confirmation: Procedure, Site, Laterality, Patient Position, Radiographs, Confirmed w/Provider <Vinh Montgomery - Last Filed: 02/04/21 03:04>
[2021-02-03 11:38] VITALS: PULSE 67; RESP 18
--- NOTE | 2021-02-03 12:47 | MR ---
EXAMINATION TYPE: MR cervical spine wo/w con DATE OF EXAM: 02/03/2021 COMPARISON: Radiograph 02/02/2021 HISTORY: 70-year-old female Abnormal CT after trauma, neck pain. Technique: Multiplanar, multisequence images of the cervical spine were obtained before and after adm inistration of 8 mL intravenous Gadavist gadolinium contrast. FINDINGS: No cranial cervical junction abnormality, predental space widening, or prevertebral soft tissue swell ing. There is no abnormal thickening or edema in the region of the transverse ligament. The lateral m ass articulations appear intact. There is preserved alignment of the cervical spine. Mild degenerative disc disease throughout, more mild to moderate from C4 through C7 levels with disc osteophyte complexes contributing to mild narrowing of the spinal canal at these levels. There is demetri iable but made of the cord but no cord compression or canal compromise. No myelopathic T2 weighted cord signal change. Mild heterogeneous marrow signal without suspicious bone marrow replacement. Scattered facet and uncovertebral joint arthropathy is present. This results in very minimal mild neuroforaminal narrowing. IMPRESSION: 1. No specific MRI evidence for injury at the C1-C2 articulation. 2. Variable mild to moderate multilevel spondylotic change. Stable mild narrowing of the spinal canal from C4 through C7 levels. 3. No malalignment. No acute osseous abnormality seen. No abnormal enhancement within the spinal ellen l.
[2021-02-03] MEDS ORDERED: ACETAMINOPHEN TAB 325 MG TAB PO STA (13:45)
--- NOTE | 2021-02-03 15:27 | XR ---
EXAMINATION TYPE: XR shoulder complete LT DATE OF EXAM: 02/03/2021 COMPARISON: 02/02/2021 HISTORY: Pain TECHNIQUE: Three views are submitted. FINDINGS: The osseous structures are intact. There is no acute fracture or dislocation. Mild AC joint arthropa thy. There is basilar subsegmental consolidation. IMPRESSION: 1. AC joint arthropathy. 2. Basilar subsegmental consolidation correlate for atelectasis versus early infiltrate.
[2021-02-03 15:48] VITALS: BP 117/62
--- NOTE | 2021-02-03 16:26 | P.CNOR ---
History of Present Illness - [facility] Consult date: 02/03/21 Consult reason: other (Left shoulder dislocation) History of present illness: The patient is a 70 year old female who presented to the emergency department last night after sustaining a fall. She states she fell head first into the bathtub at home. She was complaining of head pain, neck pain and left shoulder p ain in the ER last night. CT and MRI of the cervical spine revealed no fracture or dislocation. Head CT was negative. Shoulder x-rays revealed an anterior dislocation. The shoulder was reduced last night. She is now complaining of inability to move her arm and has no feeling to the left hand and forearm. It is unclear if the numbness was there before the reduction or not. Dr. Tucker has evaluated the patient and reviewed the MRI and cleared her cervical spine. The c-collar was removed. She still stating she is unable to lift her arm. There is moderate pain in the shoulder and no neck pain at this time. The patient states her head is not painful at this time as well. Orthopedics was consulted in the ER for evaluation of her left shoulder and neurological changes in the arm. The patient states she had shoulder surgery on her left shoulder in [place] many years ago. Review of Systems Constitutional: Denies chills, Denies fatigue, Denies fever Cardiovascular: Denies chest pain, Denies shortness of breath Respiratory: Denies cough Gastrointestinal: Reports nausea, Reports vomiting, Denies diarrhea Musculoskeletal: left: shoulder pain, shoulder stiffness Past Medical History Past Medical History: GERD/Reflux, Hyperlipidemia, Thyroid Disorder History of Any Multi-Drug Resistant Organisms: None Reported Past Surgical History: Section Past Psychological History: Depression Smoking Status: Never smoker Past Alcohol Use History: Occasional Past Drug Use History: None Reported Medications and Allergies Home Medications Medication Instructions Recorded Confirmed Type Atorvastatin [Lipitor] 20 mg PO HS 07/17/19 02/02/21 History Levothyroxine Sodium [Synthroid] 75 mcg PO DAILY 07/17/19 02/02/21 History Omeprazole 20 mg PO DAILY 07/17/19 02/02/21 History hydroCHLOROthiazide [Hydrodiuril] 12.5 mg PO DAILY 07/17/19 02/02/21 History HYDROcodone/APAP 5-325MG [Carter 5] 1 each PO Q4HR PRN #18 tab 02/03/21 Rx Allergies Allergy/AdvReac Type Severity Reaction Status Date / Time bee pollen Allergy Anaphylaxis Verified 02/02/21 22:35 IVORY SOAP Allergy Unknown Rash/Hives Uncoded 07/17/19 11:02 Physical Examination The patient is a 70 y/o female in no acute distress. She is alert and oriented x3. The patient's head is normocephalic, atraumatic. Exam of the cervical spine reveals no pain or palpation or range of motion. Exam of the left shoulder reveals healed port incisions in the lateral shoulder. No open wounds or abrasions. She is able to very slightly abduct her arm and her deltoid is firing. She is able to extend her wrist (which is new according to the patient). She is unable to move her fingers and thumb. No pain on passive ROM of the fingers. There is sensation to the upper arm, elbow, and upper forearm. There is complete numbness to the mid-forearm extending into the hand. Radial pulse is strong and capillary refill is <2 seconds to the left hand. Results X-rays of the left shoulder post reduction reveal the glenohumeral head in good position. No fractures seen. Scapula appears normal. - Labs Labs: Abnormal Lab Results - Last 24 Hours (Table) 02/02/21 02/02/21 02/02/21 Range/Units 21:41 21:41 21:41 RBC 3.73 L (3.80-5.40) m/uL Hgb 10.7 L (11.4-16.0) gm/dL Hct 32.8 L (34.0-46.0) % Plt Count 97 L (150-450) k/uL APTT 17.9 L (22.0-30.0) sec Potassium 3.4 L (3.5-5.1) mmol/L Carbon Dioxide 21 L (22-30) mmol/L Glucose 120 H (74-99) mg/dL H & H 02/02/21 Range/Units 21:41 Hgb 10.7 L (11.4-16.0) gm/dL Hct 32.8 L (34.0-46.0) % Coagulation 02/02/21 Range/Units 21:41 INR 0.9 (<1.2) Result Diagrams: 02/02/21 21:41 02/02/21 21:41 Assessment and Plan (1) Concussion Status: Acute Code(s): S06.0X9A - CONCUSSION W LOSS OF CONSCIOUSNESS OF UNSP DURATION, INIT SNOMED Code(s): 597798459 (2) Dislocation of left shoulder joint Status: Acute Code(s): S43.005A - UNSPECIFIED DISLOCATION OF LEFT SHOULDER JOINT, INIT ENCNTR SNOMED Code(s): 786784607 (3) Fall Status: Acute Code(s): W19.XXXA - UNSPECIFIED FALL, INITIAL ENCOUNTER SNOMED Code(s): 7459423 Plan: The clinical, x-ray, CT, and MRI findings were discussed with the patient and Dr. Wang. The case discussed at length with Dr. Rockwell. If the patient's pain can be controlled with Carter, the patient may be discharged home today. X-rays this afternoon reveal a successful reduction of the shoulder. The patient is able to extend her wrist, which is improved since this morning according to the patient. There is a possible nerve injury or palsy that needs to followed closely in the outpatient setting in our office. The patient will continue in arm sling for support and comfort. She will follow up next week with Dr. Rockwell. The patient agrees with this plan and will call with any questions or concerns.
== END 2021-02-03 15:54 | disposition home or self-care (01) ==
LOC: EC 19:12 → 6NMEDSUR 22:38 → UNDOADMOB 22:38 → 6NMEDSUR 02-03 06:12 → UNDOADMOB 02-03 14:22 → UNDODISOB 02-03 15:51
DX: S06.0X9A Concussion with loss of consciousness of unspecified duration, initial encounter (principal); S43.005A Unspecified dislocation of left shoulder joint, initial encounter; E78.5 Hyperlipidemia, unspecified; K21.9 Gastro-esophageal reflux disease without esophagitis; F32.A Depression, unspecified; Z79.890 Hormone replacement therapy; Z79.899 Other long term (current) drug therapy; W18.2XXA Fall in (into) shower or empty bathtub, initial encounter
CPT/HCPCS: 36415; 80053; 85025; 85610; 85730; 87635; 72040; 73030 ×2; 73020; 73060; 73090; 72125; 70450; 72156; 23650; 99285; 96374; 96375 ×3; J2270; J2765; J2405; J1170; J2704; A9585

== ENCOUNTER → 2021-02-15 | Outpatient (CLI) | payer MEDICARE ==
--- NOTE | 2021-02-15 13:48 | MR ---
EXAMINATION TYPE: MR shoulder LT wo con DATE OF EXAM: 02/15/2021 COMPARISON: Radiograph 02/03/2021 HISTORY: 70-year-old female S43.005A, Dislocation of left shoulder TECHNIQUE: Multiplanar, multisequence imaging of the left shoulder is performed without contrast. FINDINGS: There is abnormal increased signal within the intracapsular portion of the long head biceps tendon. T he extracapsular portion remains appropriately situated along the bicipital groove with moderate teno synovial fluid. There is thickening and heterogeneity of the subscapularis tendon but the majority of the tendon appe ars intact. Mild degenerative change at the AC joint with mild joint effusion. There is a full-thickness tear involving the entire supraspinatus and infraspinatus tendons. There is variable stump retraction nearly to the glenoid by up to 4.1 cm. Edematous change within the infraspinatus greater than the supraspinatus muscle belly. Mild fatty atr ophy of the infraspinatus muscle and minimal fatty streaks in the supraspinatus muscle. There is instability of the glenohumeral joint with superior subluxation. Moderate to large glenohume ral joint effusion contiguous with the subacromial/subdeltoid bursa. Multiple suture anchors within the humeral head compatible with prior rotator cuff repair. While no sizable bony Hill-Sachs deformity is seen, there is irregularity along the anterior inferior corner of the glenoid. Diffusely degenerative and blunted glenoid labrum. Deep edema tracks down the upper left arm. Mild diffuse thinning of the glenohumeral joint articular cartilage. There is a 4 mm focal moderate t hickness chondral injury along the mid humeral head articular surface. A couple small loose bodies me asuring up to 3 mm in the subacromial space. No os acromiale. Patchy red marrow is present to be seen in setting of anemia, obesity, smoking, chr onic disease. IMPRESSION: 1. Massive full thickness re-tear involving the entire supraspinatus and infraspinatus tendons with v ariable stump retraction up to 4 cm nearly to the level of the glenoid. Mild atrophy of the infraspin atus muscle belly with some reactive edema. Minimal fatty streaks within the supraspinatus muscle bel ly. 2. Secondary glenohumeral joint instability with superior subluxation and mild underlying degenerativ e cartilage thinning throughout the glenohumeral joint. 3. While no sizable Hill-Sachs deformity is seen, there is bony irregularity along the anterior infer ior corner of the glenoid. Unable to exclude a bony Bankart injury. The glenoid labrum is otherwise d iffusely degenerative and blunted. 4. Marked tendinosis versus partial tear involving the intracapsular portion of the long head biceps along with moderate tenosynovitis.
== END | disposition home or self-care (01) ==
LOC: RADMRIMAIN 11:19
PROVIDERS: ATTEND Orthopaedic Surgery Hand Surgery
DX: S46.012A Strain of muscle(s) and tendon(s) of the rotator cuff of left shoulder, initial encounter (principal); S43.002A Unspecified subluxation of left shoulder joint, initial encounter; M62.512 Muscle wasting and atrophy, not elsewhere classified, left shoulder; M25.312 Other instability, left shoulder; M19.012 Primary osteoarthritis, left shoulder; X58.XXXA Exposure to other specified factors, initial encounter

== ENCOUNTER → 2021-04-08 | Outpatient (CLI) | payer MEDICARE ==
--- NOTE | 2021-04-09 04:57 | MR ---
EXAMINATION TYPE: MR brachial plexus LT wo con DATE OF EXAM: 04/08/2021 COMPARISON: None HISTORY: Pain in left shoulder, Dislocation Multiplanar multi echo imaging of the left side shoulder and brachial plexus without contrast. There is moderate-sized shoulder joint effusion. The biceps tendon is intact. There is some narrowing of the glenohumeral joint space. There is no evidence of a mass at the left lung apex. The left uppe r ribs appear intact. There is no evidence of cervical paraspinal mass. Submandibular salivary glands appear normal. There is no evidence of any significant cervical lymphadenopathy. Cervical spinal cord shows no evidence of edema. No evidence of brachial plexus mass. There is uncove rtebral spurring and some left side C5-6 and C6-7 neural foraminal impingement. IMPRESSION: No brachial plexus abnormality. Spondylotic changes in the cervical spine with some uncovertebral spu rring and mild neural foraminal narrowing.
== END | disposition home or self-care (01) ==
LOC: RADMRIMAIN 07:35
PROVIDERS: ATTEND Nurse Practitioner
DX: M47.812 Spondylosis without myelopathy or radiculopathy, cervical region (principal); M25.78 Osteophyte, vertebrae
CPT/HCPCS: 71550

== ENCOUNTER → 2021-08-29 | Outpatient (CLI) | payer MEDICARE ==
[2021-08-29 12:09] VITALS: BP 142/90; PULSE 65; RESP 18; TEMP 98.5
--- NOTE | 2021-08-29 12:44 | P.PAINPG ---
PQRS Measure Charge Sheet Comment: HISTORY OF PRESENT ILLNESS: 70 yr old female as a referral from Dr. Adam presents today with severe and chronic neck pain secondary to DDD and facet arthropathy for evaluation. Pt states her pain level is currently at 7/10 in intensity, constant, localized in the left mid to lower aspect of her cervical spine w radiation to LUE, sore burning in character. Started Feb 2021 when she fell in her bathtub. Provoked with use of the LUE. Palliated in PT from Apr - August 2021 integrated with massage, medications (Neurontin 300mg, Motrin, Aleve), heat, ice, LUE elevation, repositioning and rest. PMH: GERD, HTN, Hyperlipidemia, Hypothyroidism, MDD PSH: C section x 2 SH: Never smoker, Occasional ETOH use, No illicit drug use FH: Non contributory All: See list Meds: See list REVIEW OF ORGAN SYSTEMS: CONSTITUTIONAL: No fevers or chills. No recent weight loss. NEUROLOGICAL: + numbness and tingling along the distal extremities. No seizure disorders or headaches. MUSCULOSKELETAL: + pain PSYCHIATRIC: Denies current depression or suicidal thoughts. Physical Examinations : Constitutional : Cooperative , not in acute distress . Neurologic : Cranial nerve II to XII intact. No focal neurological deficits. Psychiatric : alert & oriented x 3. Matching mood & appropriate affect. Judgment & insight intact. Musculoskeletal : Cervical Spine Motor strength in the deltoid and biceps: Normal right side. Normal Left side Motor strength biceps and the wrist extensors: Normal right side . Normal left side Motor strength in the triceps muscle: Normal right side. Normal left side Deep tendon reflexes: Normal at the biceps. Normal at Brachioradialis. Normal at triceps Vertebral body tenderness to deep palpation over C5-C6 Cervical facet loading test: positive on L Spurling test: positive bilaterally Neck distraction test: positive bilaterally Amish sign: positive bilaterally Lumbar spine Motor strength lower extremities ,thigh and legs 5/5 Right side , 5/5 Left side Deep tendon reflexes : Normal Knee Jerk. Normal Ankle Jerk Vertebral body tenderness over Lumbar facet Loading Test: positive Right / positive Left Range of motion of the lumbar spine Flexion 30 degrees, extension 10 degrees Straight Leg Raise test: Left/ Right positive at degree Radhika test: positive right / positive left. Severe tenderness over the Sacroiliac joint on the Right / Left sides Gaenslen test: positive bilaterally Seated flexion test: positive bilaterally. Sacral spine : Severe tenderness over the Sacroiliac joint: right side / left side Range of motion: Flexion of the lumbar spine <60 degrees Range of motion: Extension of the lumbar spine <20 degrees Gaenslen's Test positive Luis's Test positive Radhika test: positive right side / left side Thigh Thrust Test Sacral Thrust Test Imaging: MRI without contrast of the cervical spine reviewed Assessment/ Plan : Cervical DDD Recommendation of L paramedian DEE C5-C6. May need a series of injections, up to 3 within a 6 mo period, for optimal pain relief. Risks, benefits of procedure discussed and patient verbalized understanding. Denies aspirin or anti- coagulant use or medical history of diabetes. Protocol for discontinuation/ continuation of medications sam procedure discussed. All questions answered. I have spent greater than 30 minutes on patient care today. Dr Anderson was available by phone for the evaluation of this patient. The time was used to review the medical records including relevant urine studies and Prescription history (MAPs), review of the available imaging, evaluation and examination of the patient, coordination of care with the medical staff and if applicable referring physicians, as well as creation of the medical record PQRS Narrative: Smoking Status Never smoker Home Medications: Ambulatory Orders Atorvastatin [Lipitor] 20 mg PO HS 07/17/19 Levothyroxine Sodium [Synthroid] 75 mcg PO DAILY 07/17/19 Omeprazole 20 mg PO DAILY 07/17/19 hydroCHLOROthiazide [Hydrodiuril] 12.5 mg PO DAILY 07/17/19 HYDROcodone/APAP 5-325MG [[place] 5] 1 each PO Q4HR PRN #18 tab 02/03/21 Controlled Substance Measures - Controlled Substance Measures Is patient prescribed a controlled substance at discharge?: No
== END ==
LOC: PNWHC3 09:43
PROVIDERS: ATTEND Specialist
DX: M50.10 Cervical disc disorder with radiculopathy, unspecified cervical region (principal); M48.02 Spinal stenosis, cervical region; K21.9 Gastro-esophageal reflux disease without esophagitis; I10 Essential (primary) hypertension; E78.5 Hyperlipidemia, unspecified; E03.9 Hypothyroidism, unspecified; Z79.890 Hormone replacement therapy; Z79.899 Other long term (current) drug therapy; Z91.030 Bee allergy status; Z91.048 Other nonmedicinal substance allergy status
CPT/HCPCS: 99211

== ENCOUNTER → 2021-09-20 | Outpatient (CLI) | payer MEDICARE ==
--- NOTE | 2021-09-20 11:30 | US ---
EXAMINATION TYPE: US carotid duplex BILAT DATE OF EXAM: 09/20/2021 COMPARISON: NONE CLINICAL HISTORY: R42 DIZZINESS AND GIDDINESS I10 HTN. TECHNIQUE: Carotid duplex ultrasound examination. Indirect Doppler criteria was utilized. FINDINGS: EXAM MEASUREMENTS: RIGHT: Peak Systolic Velocity (PSV) cm/sec ----- Right CCA: 58.2 ----- Right ICA: 68.2 ----- Right ECA: 67.3 ICA/CCA ratio: 1.17 RIGHT: End Diastole cm/sec ----- Right CCA: 16.3 ----- Right ICA: 32.6 ----- Right ECA: 13.7 LEFT: Peak Systolic Velocity (PSV) cm/sec ----- Left CCA: 61.4 ----- Left ICA: 62.8 ----- Left ECA: 73.2 ICA/CCA ratio: 0.98 LEFT: End Diastole cm/sec ----- Left CCA: 18.5 ----- Left ICA: 22.0 ----- Left ECA: 13.8 VERTEBRALS (direction of flow): Right Vertebral: Antegrade Left Vertebral: Antegrade Rhythm: Normal DRY GOODS CLERK NOTES: Mild atherosclerotic changes without significant velocity increases seen bilateral ly. Right side technically difficult due to vessel diving deep. IMPRESSION: Less than 50% stenosis of the bilateral carotid bifurcations. Criteria for Assigning % of Stenosis / Diameter reduction (Estimation based on the indirect measurements of the internal carotid artery velocities (ICA PSV). 1. Normal (no stenosis)=ICA PSV < 125 cm/s: ratio < 2.0: ICA EDV<40 cm/s. 2. Less than 50% stenosis=ICA PSV < 125 cm/s: ratio < 2.0: ICA EDV<40 cm/s. 3. 50 to 69% stenosis=ICA PSV of 125 to 230 cm/s: ration 2.0 ? 4.0: ICA EDV 40-100 cm/s. 4. Greater than 70% stenosis to near occlusion= ICA PSV > 230 cm/s: ratio > 4.0: ICA EDV > 100 cm/s. 5. Near occlusion= ICA PSV velocities may be low or undetectable: variable ratio and ICA EDV. 6. Total occlusion=unable to detect flow.
== END | disposition home or self-care (01) ==
LOC: RADUSWWP 10:35
PROVIDERS: ATTEND Family Medicine
DX: I65.23 Occlusion and stenosis of bilateral carotid arteries (principal); I10 Essential (primary) hypertension
CPT/HCPCS: 93880

== ENCOUNTER → 2021-10-19 | Outpatient (CLI) | payer MEDICARE ==
[2021-10-19 13:23] VITALS: BP 117/78; PULSE 71; RESP 18; TEMP 97.9
--- NOTE | 2021-10-19 14:39 | P.PAINPG ---
PQRS Measure Charge Sheet Comment: A 70 yr old female w at side with a history of severe and chronic low back pain secondary to lumbar degenerative disc diseases and lumbar spondylosis with facet arthropathy without myelopathy presents today for evaluation s/p interlaminar VADIM C6-C7. Pt states she experienced 85% pain relief x 3 wks s/p procedure. Pain level is currently at 0/10 in intensity, constant, sharp in character w shooting towards the L shoulder/ L hand. Pain is provoked as high as 9/10 by lifting w the LUE. In Feb 2021, pt endured L RCT w pain in the L shoulder shooting towards the L hand. Pain is alleviated with PT x 12 wks in Feb 2021, heat, ice, medications (Neurontin, Aleve OTC, Motrin), topicals, home stretching regimen, hot showers, repositioning and rest. Interventional pain procedures completed include VADIM C6-7 x1. Patient is currently on Neurontin, Aleve OTC Patient denies any side effects of the medication(s), denies excessive drowsiness or sleepiness, denies suicidal ideation and reports that the current pain medication is helping to control the pain and improve activities of daily living. Patient denies any motor or sensory deficits. Patient denies any fever or night sweats, denies any change in the bowel movements or urination. Physical Examination: -Constitutional: Cooperative. Not in acute distress . - Neurologic: Cranial nerve II to XII intact. No focal neurological deficits. - Psychatric: Alert & oriented x 3. Matching mood & appropriate affect. Judgment and insight intact. - Musculoskeletal: Cervical spine: +LUE abduction <100 degrees due to pain Muscle bulk/ tone/ strength in the bilateral upper extremities normal Vertebral body tenderness to palpation over Spurling test positive Distraction test positive Facet loading test positive Thoracic spine Muscle bulk / tone/ strength in the bilateral paraspinal muscles normal Vertebral body tender to palpation over Facet loading test positive Lumbar spine: Motor bulk/ tone/ strength lower extremities , thigh and legs : 5/5 Deep tendon reflexes : Normal Knee Jerk. Normal Ankle Jerk . Vertebral body tenderness to palpation over Lumbar Facet Loading Test positive Straight Leg Raise: positive at 30 degrees right side/ left side Gaenslen's Test positive Sacral spine : Severe tenderness over the Sacroiliac joint: right side / left side Range of motion: Flexion of the lumbar spine <60 degrees Range of motion: Extension of the lumbar spine <20 degrees Gaenslen's Test positive Luis's Test positive Radhika test: positive right side / left side Thigh Thrust Test Sacral Thrust Test Imaging: MRI without contrast of the left brachial plexus from 04/28/21 reviewed Assessment and plan: Chronic neck pain secondary to cervical degenerative disc disease , spondylosis with facet arthropathy without myelopathy, L RCT Recommendation of L interscalene nerve block. May need a series of injections, up to 2 within a 4 mo period, for optimal pain relief. Risks, benefits of procedure discussed and pt verbalized understanding. Denies anticoagulant use or medical history of diabetes. All patient questions answered MAPS reviewed and it was appropriate. I have spent less than 30 minutes on patient care today. Dr Anderson was available by phone for the evaluation of this patient. The time was used to review the medical records including relevant urine studies and Prescription history (MAPs), review of the available imaging, evaluation and examination of the patient, coordination of care with the medical staff and if applicable referring physicians, as well as creation of the medical record PQRS Narrative: Smoking Status Never smoker Hx Alcohol Use (MH) No Home Medications: Ambulatory Orders Atorvastatin [Lipitor] 20 mg PO HS 07/17/19 Levothyroxine Sodium [Synthroid] 75 mcg PO DAILY 07/17/19 Omeprazole 20 mg PO DAILY 07/17/19 hydroCHLOROthiazide [Hydrodiuril] 12.5 mg PO DAILY 07/17/19 Gabapentin 600 mg PO TID 09/26/21 Controlled Substance Measures - Controlled Substance Measures Is patient prescribed a controlled substance at discharge?: No
== END ==
LOC: PNWHC3 12:26
PROVIDERS: ATTEND Specialist
DX: M50.30 Other cervical disc degeneration, unspecified cervical region (principal); M47.812 Spondylosis without myelopathy or radiculopathy, cervical region; G89.29 Other chronic pain; Z91.030 Bee allergy status
CPT/HCPCS: 99211

== ENCOUNTER → 2021-12-22 | Outpatient (CLI) | payer MEDICARE ==
--- NOTE | 2021-12-22 09:32 | MM ---
Reason for Exam: Screening (asymptomatic). Last screening mammogram was performed 12 month(s) ago. Patient History: Menarche at age 16. First Full-Term at age 29. Late child-bearing (after 30). Postmenopausal. Patient used Hormonal Contraceptives for 2 years. Risk Values: Henrietta 5 year model risk: 2.2%. NCI Lifetime model risk: 5.7%. Prior Study Comparison: 08/27/2017 Screening Mammogram, Unknown. 08/07/2018 Bilateral Screening Mammogram, [facility]. 12/21/2020 Bilateral Screening Mammogram, [facility]. Tissue Density: There are scattered fibroglandular densities. Findings: Analyzed By CAD. There is no suspicious group of microcalcifications or new suspicious mass in either breast. Benign appearing calcifications bilaterally. Chronic nodularity in the left breast. No significant change from prior exams. Overall Assessment: Benign, BI-RAD 2 Management: Screening Mammogram of both breasts in 1 year. A clinical breast exam by your physician is recommended on an annual basis and results should be correlated with mammographic findings. Electronically signed and approved by: Aristeo De La Cruz D.O.
== END | disposition home or self-care (01) ==
LOC: RADMAMWWP 07:20
PROVIDERS: ATTEND Family Medicine
DX: Z12.31 Encounter for screening mammogram for malignant neoplasm of breast (principal); Z78.0 Asymptomatic menopausal state
CPT/HCPCS: 77067

== ENCOUNTER → 2023-03-07 | Outpatient (CLI) | payer MEDICARE | END | disposition home or self-care (01) | LOC: LABWHC1 09:53 | PROVIDERS: ATTEND Orthopaedic Surgery Foot and Ankle Surgery | DX: M19.071 Primary osteoarthritis, right ankle and foot (principal); M21.6X1 Other acquired deformities of right foot | CPT/HCPCS: 36415; 82306 ==

== ENCOUNTER → 2023-03-07 | Outpatient (CLI) | payer MEDICARE ==
--- NOTE | 2023-03-07 13:58 | BD ---
EXAMINATION TYPE: Axial Bone Density DATE OF EXAM: 03/07/2023 CLINICAL HISTORY: 72 years old Female. ICD-10 CODE: M19.071 PRIMARY OSTEOARTHRITIS, RIGHT ANKLE AND F Height: 63.8 Weight: 160 FRAX RISK QUESTIONS: Family History (Parent hip fracture): yes History of Fracture in Adulthood: yes 3. Menopause before 45: no over 45 at menopause Current Tobacco Use: in the past RISK FACTORS height loss HISTORY OF: hx of lower leg fxs as an adult MEDICATIONS: Thyroid Medications: yes, synthroid product for about 18 yrs EXAM MEASUREMENTS: Bone mineral densitometry was performed using the [employer]. Bone mineral density as measured about the Lumbar spine is: ----- L1-L4(G/cm2): 0.939 T Score Values are as follows: ----- L1: -3.5 ----- L2: -2.6 ----- L3: -1.1 ----- L4: -1.3 ----- L1-L4: -2.0 Z Score Values are as follows: ----- L1: -2.0 ----- L2: -1.2 ----- L3: 0.4 ----- L4: 0.1 ----- L1-L4: -0.5 Bone mineral density has: Decreased -1.2% since study of: 12.21.2020 Bone mineral density about the R hip (g/cm2): 0.886 Bone mineral density about the L hip (g/cm2): 0.993 T Score values are as follows: -----R Neck: -1.2 -----L Neck: -0.7 -----R Total: -1.0 -----L Total: -0.1 Z Score values are as follows: -----R Neck: 0.4 -----L Neck: 0.9 -----R Total: 0.5 -----L Total: 1.3 Bone mineral density has: Increased 1.1% since study of: 12.21.2020 FRAX%s: The graph provided illustrates a 23.2% chance for a major osteoporotic fx and a 7.5% chance f or the hips probability for fx in 10 years time. IMPRESSION: Normal (Values between +1 and -1 indicate normal bone mass). Consider repeating this study in 5 year s or sooner if there is some new clinical indication. NOTE: T-SCORE=SD OF THE YOUNG ADULT MEAN.
== END | disposition home or self-care (01) ==
LOC: RADBDWWP 10:10
PROVIDERS: ATTEND Orthopaedic Surgery Foot and Ankle Surgery
DX: M81.0 Age-related osteoporosis without current pathological fracture (principal); M85.89 Other specified disorders of bone density and structure, multiple sites; M19.071 Primary osteoarthritis, right ankle and foot; M21.6X1 Other acquired deformities of right foot; Z78.0 Asymptomatic menopausal state
CPT/HCPCS: 77080

== ENCOUNTER → 2023-09-11 | Outpatient (CLI) | payer MEDICARE | END | disposition home or self-care (01) | LOC: LABPRL 08:24 | PROVIDERS: ATTEND Physician Assistant Medical | DX: E03.9 Hypothyroidism, unspecified (principal); E11.9 Type 2 diabetes mellitus without complications; E78.2 Mixed hyperlipidemia; K21.9 Gastro-esophageal reflux disease without esophagitis; Z79.899 Other long term (current) drug therapy | CPT/HCPCS: 80053; 80061; 82043; 82550; 82570; 84439; 84443; 85025 ==

== ENCOUNTER → 2023-10-10 | Outpatient (CLI) | payer MEDICARE ==
--- NOTE | 2023-10-14 11:14 | MM ---
Reason for Exam: Screening (asymptomatic). Last mammogram was performed 1 year(s) and 10 month(s) ago. Patient History: Menarche at age 16. First Full-Term at age 29. Late child-bearing (after 30). Postmenopausal. Patient used Hormonal Contraceptives for 2 years. Risk Values: Henrietta 5 year model risk: 2.2%. NCI Lifetime model risk: 5.4%. Prior Study Comparison: 08/07/2018 Bilateral Screening Mammogram, [facility]. 12/21/2020 Bilateral Screening Mammogram, [facility]. 12/22/2021 Bilateral MG screening mammo w CAD, [facility]. Tissue Density: The breasts are almost entirely fatty. Findings: Analyzed By CAD. Right breast: There is no suspicious group of microcalcifications or new suspicious mass. Benign-appearing calcifications right breast. Left breast: There is no suspicious group of microcalcifications or new suspicious mass. Benign-appearing calcifications left breast. Overall Assessment: Benign, BI-RAD 2 Management: Screening Mammogram of both breasts in [address] [facility] will attempt to contact patient to return for supplemental views and ultrasound if indicated. Patient should continue monthly self-breast exams. A clinical breast exam by your physician is recommended on an annual basis. This exam should not preclude additional follow-up of suspicious palpable abnormalities. Note on Henrietta scores and lifetime risk: 1. A Henrietta score greater than 3% is considered moderate risk. If this is the case, consider specialist referral to assess eligibility for a risk reducing agent. 2. If overall lifetime risk for the development of breast cancer is 20% or higher, the patient may qualify for future screening with alternating mammogram and breast MRI. Electronically signed and approved by: Lior Banks DO
== END | disposition home or self-care (01) ==
LOC: RADMAMWWP 09:56
PROVIDERS: ATTEND Family Medicine
DX: Z12.31 Encounter for screening mammogram for malignant neoplasm of breast
CPT/HCPCS: 77063; 77067